=== PATIENT | male | born 1975 | race Caucasian/White ===

== ENCOUNTER 2024-05-17 08:14 | Day surgery (SDC) | payer BC ==
[2024-05-17 09:46] VITALS: RESP 18; TEMP 97.7
--- NOTE | 2024-05-17 10:42 | US ---
ULTRASOUND GUIDED FNA THYROID BIOPSY: CLINICAL HISTORY: Request for right 1.9 cm thyroid nodule FNA FINDINGS: The procedure was explained to the patient. The risks, complications, benefits and alternatives were discussed and any questions were answered. Informed consent was obtained. Patient was placed supin e on the ultrasound table and prepped and draped in the usual sterile fashion. Utilizing a 25 gauge needle, five passes were made into the requested nodule. Patient was stable throughout the procedure. Pathology is pending. All elements of maximal barrier technique were utilized. IMPRESSION: 1. Successful ultrasound guided FNA thyroid biopsy. [facility], , 05/17/2024 10:39 AM
[2024-05-17 10:44] VITALS: BP 157/106; PULSE 55
== END 2024-05-17 10:25 | disposition home or self-care (01) ==
LOC: RADPROMAIN 08:14
PROVIDERS: ATTEND Family Medicine
DX: E04.1 Nontoxic single thyroid nodule (principal)
CPT/HCPCS: 10005; 36415; 88173; 88305